=== PATIENT | female | born 1985 | race Two or more races ===

== ENCOUNTER 2017-05-27 00:58 | Emergency (ER) | payer SELFPAY ==
[~2017-05-27] VITALS: Ht 170.2 cm; Wt 113.0 kg
[2017-05-27 01:11] VITALS: BP 117/65
== END 2017-05-27 03:15 | disposition left against medical advice (07) ==
LOC: ER 00:58
DX: Z53.21 Procedure and treatment not carried out due to patient leaving prior to being seen by health care provider (principal)
CPT/HCPCS: 82962